=== PATIENT | male | born 1935 | race Caucasian/White ===

== ENCOUNTER 2017-08-30 12:34 | Emergency (ER) | payer OTHER ==
[~2017-08-30] VITALS: Ht 175.3 cm; Wt 77.1 kg
[~2017-08-30 12:34] MED LIST: ATENOLOL25 MG PO; BENAZEPRIL HYDR20 M1 PO; CLEOCIN HCL300 MG PO; CLINDAMYCIN HC300 MG PO; CLOPIDOGREL75 M1 PO; COL100 PO; COLACE100 MG PO; DUONEB3 ML NEB; IPRATROPIUM BROM3 M2 HHN; LAC PO; LEVAQUIN750 MG PO; LOT20 PO; PANTOPRAZOLE SO40 M1 PO; PLA75 PO; POTASSIUM CHLO10 MEQ PO; PRI20 PO; SIMVASTATIN20 M1 PO; TEN25 PO; TYL325 PO; ZOC20 PO; [UNRECOGNIZED DRUG - OTHER] PO
[2017-08-30 12:54] VITALS: Ht 175.3 cm; Wt 77.1 kg
[2017-08-30 13:25] LABS: BASOPHIL % 0.2 % (0-2); PLATELET COUNT 209 x10^3mcL (130-400)
[2017-08-30 13:26] LABS: RED CELL DISTRIBUTION WIDTH 16.6 % (11.5-14.5)
[2017-08-30 13:35] VITALS: BP 146/91
[2017-08-30 13:42] LABS: CALCIUM 8.5 mg/dL (8.5-10.1); CARBON DIOXIDE 22.9 mmol/L (21-32); CHLORIDE SERUM 105 mmol/L (98-107); GLUCOSE SERUM 157 mg/dL (74-106); POTASSIUM SERUM 3.2 mmol/L (3.5-5.1); SODIUM SERUM 140 mmol/L (136-145)
[2017-08-30 13:47] LABS: ALBUMIN 2.8 g/dL (3.4-5.0); ALKALINE PHOSPHATASE 71 U/L (46-116); ALT/SGPT 11 U/L (16-63); AST/SGOT 15 U/L (15-37); BILIRUBIN TOTAL 0.59 mg/dL (0.20-1.00); TOTAL PROTEIN, SERUM 7.7 g/dL (6.4-8.2)
== END 2017-08-30 13:35 | disposition short-term general hospital (02) ==
LOC: ED 12:34
PROVIDERS: Emergency Medicine
DX: I63.9 Cerebral infarction, unspecified (principal); R47.01 Aphasia; G51.0 Bell's palsy; I10 Essential (primary) hypertension; Z86.73 Personal history of transient ischemic attack (TIA), and cerebral infarction without residual deficits
CPT/HCPCS: 82962; 83880; J2405; Q0092